=== PATIENT | female | born 1945 | race Caucasian/White ===

== ENCOUNTER → 2019-11-04 14:09 | Outpatient (CLI) | payer MEDICARE, SELFPAY ==
--- NOTE | ~2019-11-04 | MM_ITS ---
EXAMINATION: MM screening [facility] BI w viv HISTORY: Screening mammogram TECHNIQUE: Craniocaudal and mediolateral oblique 3-D tomosynthesis images were obtained and synthetic 2-D images were generated. CAD analysis was submitted and interpreted. COMPARISON: Comparison to multiple prior studies sequentially, with oldest reviewed study dated 03/2014. BREAST PARENCHYMAL COMPOSITION: There are scattered areas of fibroglandular density. FINDINGS: Left breast masses are stable. There is no evidence of suspicious mass, calcification, or a rchitectural distortion to suggest malignancy in either breast. There has been no suspicious interval change. IMPRESSION: 1. No mammographic evidence of malignancy. 2. Recommend routine screening mammography in one year. BI-RADS Category 2: Benign finding(s). Reviewed, dictated and finalized at location A. [employer]
== END ==
PROVIDERS: PCP Obstetrics & Gynecology; Visit Provider Obstetrics & Gynecology
DX: Z12.31 Encounter for screening mammogram for malignant neoplasm of breast (principal)
CPT/HCPCS: 77063; 77067

== ENCOUNTER → 2020-12-29 13:32 | Outpatient (CLI) | payer MEDICARE, SELFPAY ==
--- NOTE | ~2020-12-29 | MM_ITS ---
EXAMINATION: MM screening [facility] BI w viv HISTORY: Screening mammogram TECHNIQUE: Craniocaudal and mediolateral oblique 3-D tomosynthesis images were obtained and synthetic 2-D images were generated. CAD analysis was submitted and interpreted. COMPARISON: 11/04/2019, 09/30/2018, 01/16/2017, 08/30/2016, 08/22/2016 BREAST PARENCHYMAL COMPOSITION: There are scattered areas of fibroglandular density. FINDINGS: Again noted are a stable focal asymmetry in the upper left breast and a stable mass with ca lcification and biopsy change in the lower inner left breast. There is no evidence of suspicious mass , calcification, or architectural distortion to suggest malignancy in either breast. There has been n o suspicious interval change. IMPRESSION: 1. No mammographic evidence of malignancy. 2. Recommend routine screening mammography in one year. BI-RADS Category 2: Benign finding(s). Reviewed, dictated and finalized at location A.
== END ==
PROVIDERS: Visit Provider Obstetrics & Gynecology
DX: Z12.31 Encounter for screening mammogram for malignant neoplasm of breast (principal)
CPT/HCPCS: 77063; 77067

== ENCOUNTER → 2022-01-01 10:17 | Outpatient (CLI) | payer MEDICARE, SELFPAY ==
--- NOTE | ~2022-01-01 | MM_ITS ---
EXAMINATION: MM screening [facility] BI w viv HISTORY: Screening TECHNIQUE: Craniocaudal and mediolateral oblique 3-D tomosynthesis images were obtained and synthetic 2-D images were generated. CAD analysis was submitted and interpreted. COMPARISON: Comparison to multiple prior studies sequentially, with oldest reviewed study dated 08/08. BREAST PARENCHYMAL COMPOSITION: There are scattered areas of fibroglandular density. FINDINGS: Stable benign-appearing left breast mass. There is no evidence of suspicious mass, calcific ation, or architectural distortion to suggest malignancy in either breast. There has been no suspicio us interval change. IMPRESSION: 1. No mammographic evidence of malignancy. 2. Recommend routine screening mammography in one year. BI-RADS Category 2: Benign finding(s). Reviewed, dictated and finalized at location A.
== END ==
PROVIDERS: Visit Provider Advanced Practice Midwife
DX: Z12.31 Encounter for screening mammogram for malignant neoplasm of breast (principal)
CPT/HCPCS: 77063; 77067

== ENCOUNTER → 2023-05-06 13:32 | Outpatient (CLI) | payer MEDICARE, SELFPAY ==
--- NOTE | ~2023-05-06 | MM_ITS ---
EXAMINATION: MM screening [facility] BI w viv HISTORY: Screening mammogram TECHNIQUE: Craniocaudal and mediolateral oblique 3-D tomosynthesis images were obtained and synthetic 2-D images were generated. CAD analysis was submitted and interpreted. COMPARISON: 01/01/2022, 12/29/2020, 11/04/2019 BREAST PARENCHYMAL COMPOSITION: There are scattered areas of fibroglandular density. FINDINGS: There are stable focal asymmetry in the upper left breast and stable mass with calcificatio n and biopsy change in the lower inner breast. No suspicious mass, calcification, or architectural di stortion are identified in either breast to suggest malignancy. There has been no suspicious interval change. IMPRESSION: 1. No mammographic evidence of malignancy. 2. Recommend routine screening mammography in one year. BI-RADS Category 2: Benign finding(s). Reviewed, dictated and finalized at location A.
== END ==
PROVIDERS: PCP Nurse Practitioner Obstetrics & Gynecology; Visit Provider Nurse Practitioner Obstetrics & Gynecology
DX: Z12.31 Encounter for screening mammogram for malignant neoplasm of breast (principal)
CPT/HCPCS: 77063; 77067

== ENCOUNTER 2024-04-27 12:32 | Outpatient (CLI) | payer MEDICARE, SELFPAY ==
--- NOTE | ~2024-04-27 | CT_ITS ---
EXAMINATION: CT abdomen pelvis wo/w con DATE: 04/27/2024 13:23 INDICATION: Hematuria and urinary tract infections TECHNIQUE: Computed tomography (CT) of the abdomen and pelvis was performed without intravenous contr ast. CT of the abdomen and pelvis was then performed with a total of 130 mL Omnipaque-350 intravenous contrast using a double-bolus technique for simultaneous opacification of the renal parenchyma and r enal collecting system. Automated exposure control and iterative reconstruction technique were employ ed. The dose-length product was 1037.85 mGy-cm. COMPARISON: 08/25/2004 FINDINGS: Mild dependent atelectasis in the bilateral lower lobes. Heart size normal. No pericardial or pleural effusion. Multiple splenic calcific lesions consistent with old granulomatous disease. Liver, gallbl adder, pancreas and bilateral adrenal glands are normal. There are a few subcentimeter hypodense bila teral renal cysts. No urolithiasis. The bilateral renal collecting systems and ureters are opacified in their entirety with bilateral ureteral jets visualized in the bladder. No urothelial irregularitie s identified. Bladder is normal. The uterus is not identified and has likely been surgically resected . Postoperative change of prior proximal right hemicolectomy with right lower quadrant ileocolic anas tomosis. No bowel obstruction. There are few sigmoid diverticula without adjacent inflammatory strand ing to suggest diverticulitis. Mild lumbar levocurvature with severe spondylosis at L1-L2. Mild more caudal lumb and moderate more cephalad thoracic spondylosis. Mild left and moderate right hip osteoar thritis. IMPRESSION: 1. No urolithiasis, renal masses, urothelial irregularities or other etiology for reported hematuria. Reviewed, dictated and finalized at location A. IMPRESSION: 1. No urolithiasis, renal masses, urothelial irregularities or other etiology f or reported hematuria.
[2024-04-27 12:55] LABS: Estimated Glomerular Filt Rate > 60
== END 2024-04-27 12:33 ==
LOC: MICIMG 12:33
PROVIDERS: PCP Family Medicine; Visit Provider Nurse Practitioner Family
DX: R31.9 Hematuria, unspecified (principal)
CPT/HCPCS: 74178; Q9967

== ENCOUNTER 2024-06-24 08:31 | Outpatient (CLI) | payer MEDICARE, SELFPAY ==
--- NOTE | ~2024-06-24 | MM_ITS ---
EXAMINATION: MM screening [facility] BI w viv HISTORY: Screening TECHNIQUE: Craniocaudal and mediolateral oblique 3-D tomosynthesis images were obtained and synthetic 2-D images were generated. CAD analysis was submitted and interpreted. COMPARISON: Comparison to multiple prior studies sequentially, with oldest reviewed study dated 01/16. BREAST PARENCHYMAL COMPOSITION: Not dense: There are scattered areas of fibroglandular density. FINDINGS: Masses in the upper outer quadrant of the left breast posteriorly and lower inner quadrant of the left breast, middle third appear slightly more irregular. There are developing clustered punct ate calcifications in the lower inner quadrant mass. There is no mammographic evidence for malignancy in the left breast. IMPRESSION: 1. Altered multiple morphology of masses of the left breast with developing calcifications in the low er inner quadrant mass. 2. Additional mammographic views and possible breast ultrasound are recommended. BI-RADS Category 0: Incomplete: Needs additional imaging evaluation. Reviewed, dictated and finalized at location B. IMPRESSION: 1. Altered multiple morphology of masses of the left breast with developing kati cifications in the lower inner quadrant mass. 2. Additional mammographic views and possible breast ultrasound are recommended . BI-RADS Category 0: Incomplete: Needs additional imaging evaluation.
== END 2024-06-24 08:32 | disposition home or self-care (01) ==
PROVIDERS: PCP Family Medicine; Visit Provider Family Medicine
DX: Z12.31 Encounter for screening mammogram for malignant neoplasm of breast (principal); R92.8 Other abnormal and inconclusive findings on diagnostic imaging of breast
CPT/HCPCS: 77063; 77067

== ENCOUNTER 2024-07-23 08:21 | Outpatient (CLI) | payer MEDICARE, SELFPAY ==
--- NOTE | ~2024-07-23 | MM_ITS ---
EXAMINATION: MM diagnostic [facility] LT w viv HISTORY: Punctate calcifications developing within a left breast mass TECHNIQUE: Additional 3-D tomosynthesis and spot magnification images of the left breast were perform ed and synthetic 2-D images were generated. CAD analysis was submitted and interpreted. COMPARISON: 06/24/2024, a 2022, 01/01/2022, 12/29/2020 BREAST PARENCHYMAL COMPOSITION:Not Dense. There are scattered areas of fibroglandular density. FINDINGS: Somewhat lobulated lower, inner left breast mass demonstrates similar morphology overall to prior exam, with some coarse calcifications. There are associated developing punctate calcifications , probably benign in appearance. Density at the upper left breast demonstrates effacement with spot c ompression, is also essentially stable dating back to prior exams. IMPRESSION: Developing punctate microcalcifications within mass at the lower, inner left breast, probably benign. Six-month follow-up left breast mammogram recommended to reassess. BI-RADS category 3, probably benign findings. Reviewed, dictated and finalized at location M. [employer] IMPRESSION: Developing punctate microcalcifications within mass at the lower, inner left br east, probably benign. Six-month follow-up left breast mammogram recommended to reassess. BI-RADS category 3, probably benign findings.
== END 2024-07-23 08:22 | disposition home or self-care (01) ==
LOC: MICIMG 08:22
PROVIDERS: PCP Family Medicine; Visit Provider Family Medicine
DX: R92.8 Other abnormal and inconclusive findings on diagnostic imaging of breast (principal)
CPT/HCPCS: 77061; 77065; G0279

== ENCOUNTER 2025-01-25 08:01 | Outpatient (CLI) | payer MEDICARE, SELFPAY ==
--- NOTE | ~2025-01-25 | MM_ITS ---
EXAMINATION: MM diagnostic [facility] LT w viv HISTORY: Follow-up left breast masses TECHNIQUE: Additional 3-D tomosynthesis images of the left breast were performed and synthetic 2-D im ages were generated. CAD analysis was submitted and interpreted. COMPARISON: Comparison to multiple prior studies sequentially, with oldest reviewed study dated 11/04. BREAST PARENCHYMAL COMPOSITION: Not dense: There are scattered areas of fibroglandular density. FINDINGS: No significant change to left breast asymmetries and mass in the lower inner quadrant of th e left breast. Calcifications are not significantly changed within the dominant mass. No new masses, calcifications or architectural distortion. IMPRESSION: 1. Stable left mammogram without evidence for malignancy. 2. Routine yearly screening mammogram and regular clinical breast examination are recommended. BI-RADS Category 2: Benign finding(s). Reviewed, dictated and finalized at location B. IMPRESSION: 1. Stable left mammogram without evidence for malignancy. 2. Routine yearly screening mammogram and regular clinical breast examination a re recommended. BI-RADS Category 2: Benign finding(s).
== END 2025-01-25 08:02 | disposition home or self-care (01) ==
LOC: MICIMG 08:02
PROVIDERS: PCP Family Medicine; Visit Provider Family Medicine
DX: R92.8 Other abnormal and inconclusive findings on diagnostic imaging of breast (principal)
CPT/HCPCS: 77061; 77065; G0279